=== PATIENT | female | born 1965 | race Caucasian/White ===

== ENCOUNTER 2019-12-31 16:35 | Emergency (ER) | payer MEDICARE, SELFPAY ==
--- NOTE | ~2019-12-31 | CT_ITS ---
EXAMINATION: CT facial bones w con DATE: 12/31/2019 19:50 INDICATION: Right periorbital swelling. TECHNIQUE: Computed tomography (CT) of the facial bones and maxillofacial region was performed with 7 5 mL Omnipaque 350 intravenous contrast. Automated exposure control and iterative reconstruction tech ScanNano were employed. The dose-length product was 503.65 mGy-cm. COMPARISON: Head CT 12/01/2009 FINDINGS: There is bilateral proptosis. There is right periorbital soft tissue swelling, worst at the superior opening of the nasolacrimal duct where there is a 9 mm ring-enhancing fluid collection. The re is mucosal thickening of right inferior turbinate, which occludes the inferior opening of the naso lacrimal duct. There is moderate mucosal thickening in the anterior right ethmoid sinuses. There is m ild mucosal thickening in some of the other paranasal sinuses. There is eg bullosa involving righ t middle turbinate. The extraocular muscles and optic nerves are normal. IMPRESSION: 1. Right nasolacrimal duct obstruction. Reviewed, dictated and finalized at location A. 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
[2019-12-31 17:21] VITALS: BP 168/72; PULSE 81; RESP 18; TEMP 36.9; O2SAT 97
[2019-12-31] MEDS: SODIUM CHLORIDE 0.9% IV 1,000 ML 999 ML IV CONT (18:39)
[2019-12-31] MEDS: FAMOTIDINE 20 MG/2 ML VIAL IV PUSH (18:39)
[2019-12-31] MEDS: MORPHINE SULFATE (*CRX) 4 MG/ML INJ IV PUSH (18:39)
[2019-12-31 18:59] LABS: Basophils Absolute Auto 0.1 K/mm3 (0.0-0.1); Basophils Percent Auto 0.6 % (0.2-1.2); Eosinophils Absolute Auto 0.1 K/mm3 (0-0.3); Hematocrit 40.9 % (37.0-47.0); Hemoglobin 13.4 g/dL (12.0-15.0); Immature Granulocyte Absolute 0.04 K/mm3 (0.00-0.031); Immature Granulocyte Percent A 0.4 % (0-0.5); Lymphocytes Absolute Auto 2.87 K/mm3 (0.9-3.2); Lymphocytes Percent Auto 28.7 % (18.3-44.2); Mean Corpuscular HGB Conc 32.8 g/dl (32-36); Mean Corpuscular Hemoglobin 28.3 pg (26-34); Mean Corpuscular Volume 86.5 fl (80-100); Mean Platelet Volume 9.5 fl (7.4-10.4); Monocytes Absolute Auto 0.7 K/mm3 (0.1-0.6); Monocytes Percent Auto 6.9 % (2.6-8.5); Neutrophils Absolute Auto 6.2 K/mm3 (1.3-6.7); Neutrophils Percent Auto 62.4 % (45.5-73.1); Platelet Count Result 259 k/mm3 (150-375); Red Blood Count 4.73 M/mm3 (4.2-5.4); Red Cell Distribution Width 14.7 % (11.5-14.5)
[2019-12-31 19:03] LABS: Anion Gap 11 mmol/L (8-16); Blood Urea Nitrogen 14 mg/dL (7-17); CRP 4.3 mg/dL (<1.0); Calcium 9.4 mg/dL (8.4-10.2); Carbon Dioxide 29 mmol/L (22-30); Chloride 102 mmol/L (98-107); Estimated CRCL calculation 123 ml/min; Estimated Glomerular Filt Rate > 60; Glucose 153 mg/dL (65-105); Potassium 3.9 mmol/L (3.4-5.0); Sodium 142 mmol/L (137-145)
--- NOTE | 2019-12-31 19:25 | ED.EYEPROB ---
HPI - Eye Problem General Chief complaint: Eye Problems Stated complaint: facial swelling around right eye Time Seen by Provider: 12/31/19 17:57 Source: patient and family Mode of arrival: ambulatory Limitations: no limitations History of Present Illness HPI Narrative: Patient is a 54-year-old female who presents with redness and discomfort in the right periorbital region noting that 2 days ago she began with irritation and discomfort with increasing redness patient denies similar occurrence injury or trauma patient notes that her doctor gave her eyedrops and antibiotics which she has been on for 1 day with no improvement in symptoms with subjective fever with chills patient on arrival appears uncomfortable but in no distress denies similar occurrence in the past 1 Related Data Home Medications Medication Instructions Recorded Confirmed cetirizine 10 mg capsule 10 mg PO DAILY PRN 07/21/19 11/24/19 fluticasone propionate 50 1 spray NASAL BID ml 07/21/19 11/24/19 mcg/actuation nasal spray,suspension ibuprofen 800 mg tablet 800 mg PO TID PRN 07/21/19 11/24/19 Allergies Allergy/AdvReac Type Severity Reaction Status Date / Time citalopram Allergy Unknown Vomiting Verified 12/31/19 17:56 Review of Systems Review of Systems: All systems reviewed & are unremarkable except as noted in HPI and below PMFSH Past Medical History Medical History Cellulitis Exposure to COVID-19 virus Headache Family History Family History (Updated 10/07/18 @ 15:33 by DOCTOR UNKNOWN) Sibling Diabetes mellitus Hypertension Mother Family history of osteoporosis Family history of hypercholesterolemia Father Hypertension Family history of lung cancer Family history of malignant neoplasm of brain, Onset Age: 66 Patient's father is Grandparent Hypertension Carcinoma of colon Family history of coronary artery disease Social History Social History Smoking packs per day: 1 Smoking cigarettes per day: 20.0 Years smoked: 12 Smoking pack-years: 12.00 Smoking status: Former smoker Smoking end date: 12/26/95 Alcohol intake: current Exam Narrative: Exam Narrative: GENERAL: Well-appearing, well-nourished, and in no acute distress. HEAD: Normocephalic, atraumatic. EYES: PERRLA and EOMI. right periorbital erythema and swelling extending into the cheek. No conjunctival injection or discharge noted ENT: Nares clear, no rhinorrhea or epistaxis. Mucous membranes moist. Oropharynx without tonsillar hypertrophy exudate or other lesions. CHEST: Clear to auscultation. No respiratory distress. No wheezes rales or rhonchi HEART: Regular rate and rhythm. No murmur heard. EXTREMITIES: Normal range of motion. No edema. SKIN: Warm, dry, no rash. NEURO: No focal deficits. Alert and oriented x3. PSYCH: Normal mood and affect. Course Course Emergency Course: Patient in the room at this time is been hydrated given IV antibiotics and pain medication will go by private vehicle as requested to [facility] ER where she will be seen by specialty services is aware of the recommendations and discussion with specialty services and agrees with the plan Consultations Consultation #1: Spoke with both of my ENT physicians that are local but not on-call and recommend that the patient should be transferred Date: 12/31/19 Time: 21:24 Consultation #2: Discussed case with Dr. Byrne ophthalmology has [facility] who recommends that the patient be transferred [facility] ER physician has accepted the patient Date: 12/31/19 Time: 21:24 Vital Signs Vital signs: Vital Signs Temperature 98.5 F 12/31/19 17:21 Pulse Rate 81 12/31/19 17:21 Respiratory Rate 18 12/31/19 17:21 Blood Pressure 168/72 H 12/31/19 17:21 Pulse Oximetry 97 12/31/19 17:21 Temperature 99.2 F 12/31/19 20:26 Pulse Rate 91
--- NOTE | 2019-12-31 19:40 | PC.NURSE ---
Patient being taken to CT.
[2019-12-31 20:26] VITALS: BP 149/79; PULSE 91; RESP 18; TEMP 37.3; O2SAT 96
== END 2019-12-31 21:45 | disposition short-term general hospital (02) ==
PROVIDERS: Emergency Medicine Emergency Medical Services; Emergency Provider Emergency Medicine; PCP Family Medicine
DX: L03.213 Periorbital cellulitis (principal); Z87.891 Personal history of nicotine dependence
CPT/HCPCS: 36415; 70487; 80048; 85025; 86140; 96361; 96365; 96366; 96375; 99284; J0131; J0696; J2270; J3370; J7030; Q9967

== ENCOUNTER → 2020-08-29 12:39 | Outpatient (CLI) | payer MEDICARE, SELFPAY ==
--- NOTE | ~2020-08-29 | US_ITS ---
EXAMINATION: US pelvic complete w TV DATE: 08/29/2020 13:06 INDICATION: Postmenopausal bleeding. Cramping. Comparison:No prior studies for comparison. TECHNIQUE: Multiple transabdominal and endovaginal sonographic images of the pelvis performed. FINDINGS: The uterus measures 6.6 x 3 x 3.9 cm. The endometrial complex measures 6 mm. The ovaries are not visualized. No adnexal masses. There is no free fluid in the pelvis. There are no abnormal masses seen on either side. IMPRESSION: 1. Thickened endomtrial complex. The differential diagnosis includes endometrial hyperplasia, polyp a nd carcinoma. Biopsy is recommended. Reviewed, dictated and finalized at location A. IMPRESSION: 1. Thickened endomtrial complex. The differential diagnosis includes endometria l hyperplasia, polyp and carcinoma. Biopsy is recommended.
== END ==
PROVIDERS: PCP Family Medicine; Visit Provider Obstetrics & Gynecology
DX: N95.0 Postmenopausal bleeding (principal)
CPT/HCPCS: 76830; 76856

== ENCOUNTER 2020-11-29 07:29 | Outpatient (CLI) | payer MEDICARE, SELFPAY ==
--- NOTE | ~2020-11-29 | US_ITS ---
EXAMINATION: US carotid duplex BI DATE: 11/29/2020 09:23 INDICATION: Subjective visual disturbance with left visual field defect. TECHNIQUE: Grayscale, color Doppler, and pulsed Doppler images of the cervical carotid arteries were obtained. The degree of vessel stenosis is placed in one of the following categories: normal, <50%, 5 0-69%, >=70% but less than near-occlusion, near-occlusion, or total occlusion. Note that percent sten osis relative to normal distal artery lumen diameter is indirectly measured from velocity measurement s as described by Reji, et al. Radiology 2003; 229:340-346. COMPARISON: None. FINDINGS: RIGHT: The right common carotid artery (CCA) peak systolic velocity (PSV) is 114 cm/s. The right internal ca rotid artery (ICA) PSV is 85 cm/s. The right ICA end-diastolic velocity (EDV) is 23 cm/s. The right I CA/CCA PSV ratio is 0.7. Grayscale and color Doppler images yield an estimate of <50% diameter reduct ion from plaque in the ICA. The external carotid artery (ECA) PSV is 59 cm/s. There is antegrade flow in the right vertebral artery. LEFT: The left CCA PSV is 98 cm/s. The left ICA PSV is 80 cm/s. The left ICA EDV is 27 cm/s. The left ICA/C CA PSV ratio is 0.8. Grayscale and color Doppler images yield an estimate of <50% diameter reduction from plaque in the ICA. The ECA PSV is 150 cm/s. There is antegrade flow in the left vertebral artery . IMPRESSION: 1. <50% stenosis in the right internal carotid artery. 2. <50% stenosis in the left internal carotid artery. Reviewed, dictated and finalized at location B.
--- NOTE | 2020-11-29 07:47 | ECHO_ITS ---
Patient Info Name: Domenica Domínguez Age: 54 years : 1965 Gender: Female Ht: 65 in Wt: 265 lbs BSA: 2.41 m2 HR: 80 bpm BP: 140 / 76 mmHg Exam Date: 11/29/2020 7:54 AM Exam Location: [facility] Patient Status: Outpatient Admit Date: 11/29/2020 Staff Ordering Physician: Karri Fowler MD Cardiac Exercise Physiologist: Tammy Lawson RDCS Attending Provider: Karri Fowler MD Referring Physician: Bonifacio Martin MD; Exam Type: CA echo doppler color flow Study Info Indications H53.9 - Unspecified visual disturbance Complete two-dimensional, color flow and Doppler transthoracic echocardiogram is performed. Summary 1. Complete two-dimensional, color flow and Doppler transthoracic echocardiogram is performed. 2. Left ventricular chamber dimension is normal. 3. Left ventricular systolic function is normal, estimated at 60-65%. 4. The left ventricular diastolic function is abnormal. 5. E/e' 12 is mildly elevated. 6. Left atrial chamber dimension is mildly enlarged. 7. The mitral valve has mildly calcified annulus. 8. There is trace mitral valve regurgitation. 9. There is trace tricuspid valve regurgitation. 10. No pulmonary hypertension, estimated pulmonary arterial systolic pressure is 31 mmHg. Left Ventricle E/e' 12 is mildly elevated. Left ventricular chamber dimension is normal. Left ventricular systolic function is normal, estimated at 60-65%. The left ventricular diastolic function is abnormal. Right Ventricle Right ventricular systolic function is normal and with normal TAPSE 2.4 cm. Right ventricular chamber dimension is normal. Left Atria Left atrial chamber dimension is mildly enlarged. Right Atria Right atrial chamber dimension is normal. Aortic Valve The aortic valve is trileaflet. There is no aortic valve stenosis. There is no aortic valve regurgitation. Pulmonic Valve There is no pulmonic regurgitation. Mitral Valve The mitral valve has mildly calcified annulus. There is no mitral valve stenosis. There is trace mitral valve regurgitation. Tricuspid Valve There is trace tricuspid valve regurgitation. No pulmonary hypertension, estimated pulmonary arterial systolic pressure is 31 mmHg. Pericardium/Pleural There is no pericardial effusion. Inferior Vena Cava Normal inferior vena cava with >50% collapse upon inspiration consistent with normal right atrial pressure, 5 mmHg. Aorta The aortic root size at the sinus of Valsalva is normal. Left Ventricular Outflow Tract Name Value Normal LVOT 2D LVOT Diameter 2.0 cm LVOT Doppler LVOT Peak Gradient 6 mmHg LVOT Mean Gradient 3 mmHg LVOT VTI 28 cm LVOT VTI/AV VTI Ratio 0.8 LVOT Stroke Volume 86 ml LVOT CO 5.4 l/min LVOT CI 2.3 l/min/m2 Pulmonic Valve Name Value Normal
--- NOTE | 2020-11-29 08:41 | ECG_ITS ---
Measurements Intervals [place] Rate: 75 P: 61 GA: 220 QRS: 33 QRSD: 91 T: 48 QT: 396 QTc: 444 Interpretive Statements SINUS RHYTHM WITH FIRST DEGREE AV BLOCK ABNORMAL ECG Electronically Signed On 11-29-2020 8:57:29 CDT by Justin Pradhan D.O.
== END 2020-11-29 07:30 | disposition home or self-care (01) ==
PROVIDERS: PCP Family Medicine; Referring Provider Obstetrics & Gynecology; Visit Provider Family Medicine
DX: Z01.818 Encounter for other preprocedural examination (principal); G45.9 Transient cerebral ischemic attack, unspecified; I44.0 Atrioventricular block, first degree
CPT/HCPCS: 93005; 93306; 93880

== ENCOUNTER 2020-12-06 00:36 | Day surgery (SDC) | payer MEDICARE, SELFPAY ==
[2020-11-28 12:49] VITALS: BMI 44.1
[2020-12-06 06:30] VITALS: BP 141/63; PULSE 92; RESP 16; TEMP 37.1; O2SAT 98
[2020-12-06] MEDS: ACETAMINOPHEN 500 MG TABLET 1000 MG PO (06:41)
[2020-12-06] MEDS: LACTATED RINGERS 1,000 ML 30 ML IV CONT (06:55)
[2020-12-06 07:07] LABS: Glucose Point of Care 129 mg/dl (65-105)
--- NOTE | 2020-12-06 07:12 | PM.IMHP ---
H&P: HPI History of Present Illness Date/Time: 12/06/20 07:12 Patient with postmenopausal bleeding with endometrial biopsy that showed possible polyp. Recommended for D and C hysteroscopy. Chief Complaint: postmenopausal bleeding Review of Systems Review of Systems: All systems reviewed & are unremarkable except as noted in HPI and below Cardiovascular: Cardiovascular: Reports no additional cardiovascular complaints, Denies chest pain and Denies dyspnea Respiratory: Respiratory: Reports no additional respiratory complaints and Denies dyspnea Gastrointestinal: Gastrointestinal: Reports abdominal pain, Denies change in bowel habits, Denies diarrhea, Denies nausea and Denies vomiting Genitourinary: Genitourinary: Reports pelvic pain Musculoskeletal: Musculoskeletal: Reports back pain Integumentary/Breasts: Skin/Breast: Reports system reviewed and no additional complaints, except as docu Neurologic: Reports system reviewed and no additional complaints, except as documented [facility] Past Medical History Medical History (Updated 12/06/20 @ 07:14 by Bonifacio Martin MD) Anxiety Arthritis Cellulitis Exposure to COVID-19 virus Headache TAMIKO (obstructive sleep apnea) Polyp of colon (10/27/18) benign polyp transverse colon 10/27/2018 Dr. 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 Echocardiogram unremarkable 11/29/2020 with trace mitral valve regurgitation and trace tricuspid regurgitation. TIA (transient ischemic attack) with temporary visual changes Surgical History Surgical History H/O Spinal surgery Posterior spinal fusion Anterior spinal fusion Posterior spinal fusion revised History of section S/P endometrial ablation Tubal ligation status [place] teeth removed Family History Family History Sibling Diabetes mellitus Hypertension Mother Family history of osteoporosis Family history of hypercholesterolemia Father Hypertension Family history of lung cancer Family history of malignant neoplasm of brain, Onset Age: 66 Patient's father is Grandparent Hypertension Carcinoma of colon Family history of coronary artery disease Social History Social History Smoking packs per day: 1 Smoking cigarettes per day: 20.0 Years smoked: 10 Smoking pack-years: 10.00 Smoking status: Former smoker Tobacco type: cigarettes Smoking end date: 12/26/95 Alcohol intake: current Alcohol use details: RARE Substance use: never Substance use type: does not use Living arrangements: with family Spiritual care concerns: No Meds Home Medications and Allergies Home Medications Medication Instructions Recorded Confirmed Type cetirizine 10 mg capsule 10 mg PO DAILY PRN 07/21/19 11/28/20 History fluticasone propionate 50 1 spray NASAL BID ml 07/21/19 11/28/20 History mcg/actuation nasal spray,suspension acetaminophen 500 mg tablet 500 mg PO Q6H PRN 08/16/20 11/28/20 History atorvastatin 10 mg tablet 10 mg PO DAILY #90 tablet 10/17/20 11/28/20 Rx lisinopril 20 mg tablet 20 mg PO DAILY #90 tablet 10/17/20 11/28/20 Rx meloxicam 15 mg tablet 15 mg PO DAILY PRN #90 tablet 10/17/20 11/28/20 Rx metformin 500 mg tablet 500 mg PO DAILY #90 tablet 10/17/20 11/28/20 Rx Allergies Allergy/AdvReac Type Severity Reaction Status Date / Time citalopram Allergy Unknown Vomiting Verified 11/28/20 12:48 Exam Const: Orientation/consciousness: oriented to person and oriented to place HENMT: Head: normal to inspection Eyes: General: appearance normal, both eyes and all related structures Resp: Effort & Insp
--- NOTE | 2020-12-06 07:15 | WPDHPUPDATE1 ---
History and Physical Update Update Date/Time: 12/06/20 07:15 History and Physical has been reviewed, including an updated exam of the patient. There are NO changes in the patient's condition. Risks, benefits, and alternatives have been discussed and questions answered. Patient agrees to proceed with procedure.
--- NOTE | 2020-12-06 07:16 | WPDANESEPPF ---
Anes - Initial Pre Proc Eval Procedure: Operation Date: 12/06/20 07:30 Proposed Procedures p Dilation and Curettage with Possible Hysteroscopy, with Possible Myosure - Bonifacio Martin MD Date/Time: 12/06/20 07:16 Surgeon: Bonifacio Martin MD Pre Op Diagnosis: abnormal uterine bleeding Patient Data Age: 54 Gender: F Height: 1.65 m Weight: 120.2 kg Allergies Allergy/AdvReac Type Severity Reaction Status Date / Time citalopram Allergy Unknown Vomiting Verified 11/28/20 12:48 Home Medications Medication Instructions Recorded Confirmed Type cetirizine 10 mg capsule 10 mg PO DAILY PRN 07/21/19 11/28/20 History fluticasone propionate 50 1 spray NASAL BID ml 07/21/19 11/28/20 History mcg/actuation nasal spray,suspension acetaminophen 500 mg tablet 500 mg PO Q6H PRN 08/16/20 11/28/20 History atorvastatin 10 mg tablet 10 mg PO DAILY #90 tablet 10/17/20 11/28/20 Rx lisinopril 20 mg tablet 20 mg PO DAILY #90 tablet 10/17/20 11/28/20 Rx meloxicam 15 mg tablet 15 mg PO DAILY PRN #90 tablet 10/17/20 11/28/20 Rx metformin 500 mg tablet 500 mg PO DAILY #90 tablet 10/17/20 11/28/20 Rx Laboratory Tests 12/06/20 07:05 POC Capillary Glucose 129 mg/dl H mg/dl (65-105) Patient hx anesthesia problems: none Family hx anesthesia problems: none Results Review: All pre-operative results and documents have been reviewed as part of the pre-operative evaluation. [facility] Past Medical History Medical History (Updated 12/06/20 @ 07:14 by Bonifacio Martin MD) Anxiety Arthritis Cellulitis Exposure to COVID-19 virus Headache TAMIKO (obstructive sleep apnea) Polyp of colon (10/27/18) benign polyp transverse colon 10/27/2018 Dr. 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 Echocardiogram unremarkable 11/29/2020 with trace mitral valve regurgitation and trace tricuspid regurgitation. TIA (transient ischemic attack) with temporary visual changes Surgical History Surgical History H/O Spinal surgery Posterior spinal fusion Anterior spinal fusion Posterior spinal fusion revised History of section S/P endometrial ablation Tubal ligation status [place] teeth removed Family History Family History Sibling Diabetes mellitus Hypertension Mother Family history of osteoporosis Family history of hypercholesterolemia Father Hypertension Family history of lung cancer Family history of malignant neoplasm of brain, Onset Age: 66 Patient's father is Grandparent Hypertension Carcinoma of colon Family history of coronary artery disease Social History Social History Smoking packs per day: 1 Smoking cigarettes per day: 20.0 Years smoked: 10 Smoking pack-years: 10.00 Smoking status: Former smoker Tobacco type: cigarettes Smoking end date: 12/26/95 Alcohol intake: current Alcohol use details: RARE Substance use: never Substance use type: does not use Living arrangements: with family Spiritual care concerns: No Anes - Eval Final PreProcedure Day of Procedure 12/06/20 07:16 Patient weight: morbidly obese Heart: regular rate and rhythm Lungs: clear to auscultation Airway: Mallampati scale class II Neurological: alert and oriented Last oral intake: >/= 8 hours ASA classification: III Emergent: no Anesthetic plan: proceed Anesthesia type and monitoring: general GIVS (may use LMA if needed) and standard monitoring Results Review: All pre-operative results and documents have been reviewed as part of the pre-operative evaluation. Informed Consent: The patient's anesthetic plan and its atte
[2020-12-06] MEDS: ceFAZolin 3 GM/D5W 100 ML 100 ML IVPB (07:29)
[2020-12-06] MEDS: LIDOCAINE HCL 1% PF 30 ML VIAL 10 ML INFILTRATE (07:46)
[2020-12-06 07:59] VITALS: BP 109/45; PULSE 83; RESP 12; O2SAT 95
[2020-12-06 08:06] LABS: Glucose Point of Care 141 mg/dl (65-105)
--- NOTE | 2020-12-06 08:11 | W.PM.PROC2 ---
Procedure Note - Detailed Date of Procedure 12/06/20 Pre-op Diagnosis abnormal uterine bleeding Post-op Diagnosis same Procedure Performed Dilation and curettage hysteroscopy diagnostic. Surgeon Bonifacio Martin MD Anesthesia MAC and local Indications Patient with post menopausal bleeding. Endometrial biopsy showed possible endometrial polyp. Findings Uterus sound to 7.5 cm. The uterine cavity was atrophic. Minimal tissue obtained on curettage. total insufflation 200 cc recovered 140 cc of normal saline. Description of Procedure After form consent was obtained patient was taken to the operating room and adequate IV sedation was administered. She was placed in high lithotomy position and prepped and draped in sterile fashion. Attention was turned to the vagina. Speculum inserted. Single-tooth tenaculum placed on anterior lip of the cervix. 1% lidocaine was injected at the cervical vaginal interface at 2, 5, 8 and 10 oclock position. The small dilator was inserted. The uterine sound was inserted and sounded to 7.5 cm. The cervix was dilated to an 8 Barrientos dilator. The hysteroscope was inserted. The cavity appeared atrophic. No lesions seen. A curettage was then performed and there was minimal tissue obtained. The single-tooth tenaculum was removed. Hemostasis was noted. The speculum was removed. The patient tolerated procedure well. Estimated Blood Loss 5 Drains No Packing No Pathology yes ( Scant endometrial curettings) Complications No immediate complications Condition stable Disposition PACU
[2020-12-06] MEDS: oxyCODONE HCL (*CRX) 5 MG TAB IR PO (08:23)
[2020-12-06 08:25] VITALS: BP 104/48; PULSE 76; RESP 20
[2020-12-06 08:55] VITALS: BP 119/64; PULSE 74; RESP 20
== END 2020-12-06 09:00 | disposition home or self-care (01) ==
PROVIDERS: PCP Family Medicine; Visit Provider Obstetrics & Gynecology
PROC: 0U5B8ZZ Destruction of Endometrium, Via Natural or Artificial Opening Endoscopic (ICD-10-PCS; CPT 58563; principal; 2020-12-06 07:30)
DX: N95.0 Postmenopausal bleeding (principal); N85.8 Other specified noninflammatory disorders of uterus; G47.33 Obstructive sleep apnea (adult) (pediatric); F41.9 Anxiety disorder, unspecified; Z86.73 Personal history of transient ischemic attack (TIA), and cerebral infarction without residual deficits; Z98.1 Arthrodesis status; Z87.891 Personal history of nicotine dependence; Z79.84 Long term (current) use of oral hypoglycemic drugs; E66.01 Morbid (severe) obesity due to excess calories; Z68.42 Body mass index [BMI] 45.0-49.9, adult
CPT/HCPCS: 58558; 82948; 88305; 93005; 93306; 93880; A9270; J0690; J2250; J7030; J7120

== ENCOUNTER → 2021-02-05 07:05 | Outpatient (CLI) | payer MEDICARE, SELFPAY ==
--- NOTE | ~2021-02-05 | MM_ITS ---
EXAMINATION: MM screening carlos BI w gely HISTORY: Screening mammogram TECHNIQUE: Craniocaudal and mediolateral oblique 3-D tomosynthesis images were obtained and synthetic 2-D images were generated. CAD analysis was submitted and interpreted. COMPARISON: 02/08/2016 BREAST PARENCHYMAL COMPOSITION: There are scattered areas of fibroglandular density. FINDINGS: A focal asymmetry outer left breast is not significantly changed. There is no evidence of s uspicious mass, calcification, or architectural distortion to suggest malignancy in either breast. Th ere has been no suspicious interval change. IMPRESSION: 1. No mammographic evidence of malignancy. 2. Recommend routine screening mammography in one year. BI-RADS Category 1: Negative Reviewed, dictated and finalized at location A. 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
== END ==
PROVIDERS: PCP Family Medicine; Visit Provider Obstetrics & Gynecology
DX: Z12.31 Encounter for screening mammogram for malignant neoplasm of breast (principal)
CPT/HCPCS: 77063; 77067

== ENCOUNTER → 2021-02-07 07:44 | Outpatient (CLI) | payer MEDICARE, SELFPAY ==
[2021-02-07 18:29] LABS: SARS-CoV-2 RNA PCR Negative
== END ==
PROVIDERS: PCP Family Medicine; Visit Provider Family Medicine
DX: J02.9 Acute pharyngitis, unspecified (principal); Z20.822 Contact with and (suspected) exposure to COVID-19
CPT/HCPCS: C9803; U0003; U0005

== ENCOUNTER → 2021-02-28 07:25 | Outpatient (CLI) | payer MEDICARE, SELFPAY ==
[2021-03-01 14:36] LABS: SARS-CoV-2 RNA PCR Negative
== END ==
PROVIDERS: PCP Family Medicine; Visit Provider Family Medicine
DX: Z20.822 Contact with and (suspected) exposure to COVID-19 (principal)
CPT/HCPCS: C9803; U0003; U0005

== ENCOUNTER 2021-04-06 07:55 | Outpatient (CLI) | payer MEDICARE, SELFPAY ==
--- NOTE | 2021-04-10 14:22 | WPDSLEEPSTUD ---
Sleep Study Date of Study: 04/06/21 <Charlotte Rockwell, DO - Last Filed: 04/10/21 14:51> Ordering Provider: Karri Fowler MD <Charlotte Rockwell, DO - Last Filed: 04/10/21 14:51> Interpreting Physician: Charlotte Rockwell DO <Charlotte Rockwell, DO - Last Filed: 04/10/21 14:51> Sleep Study Type: Split Polysomnogram <Charlotte Rockwell, DO - Last Filed: 04/10/21 14:51> Height: 1.64 m <Charlotte Rockwell DO - Last Filed: 04/10/21 14:51> Weight: 125.191 kg <Charlotte Rockwell DO - Last Filed: 04/10/21 14:51> Body Mass Index: 46.6 <Charlotte Rockwell DO - Last Filed: 04/10/21 14:51> Neck Circumference (inches): 18.5 <Charlotte Rockwell DO - Last Filed: 04/10/21 14:51> [place]: 12 <Charlotte Rockwell DO - Last Filed: 04/10/21 14:51> Reason for Sleep Study The patient's current CPAP machine is malfunctioning. She needs a new sleep study to requalify for PAP therapy. <Charlotte Rockwell DO - Last Filed: 04/10/21 14:51> Sleep History The patient is a 55-year-old female with anxiety, type 2 diabetes, hypertension, hyperlipidemia, lumbago with left-sided sciatica, allergic rhinitis, history of TIA, history of tobacco abuse and previously diagnosed TAMIKO that had a sleep study ordered by her PCP. the patient states that she frequently awakens from sleep short of breath. She rarely awakens at night with heartburn, belching or cough she constantly snores loud enough that others complain. She rarely has trouble sleeping when she has a cold. She frequently wakes up gasping for air throughout the night. She constantly has breathing problems at night observed by herself or others. She frequently sweats excessively at night. She occasionally notices heart palpitations or irregular heartbeats during the night. She frequently falls asleep during the day but never while driving. She occasionally has trouble at school or work due to sleepiness. She rarely experiences vivid dreamlike scenes upon awakening or falling asleep. She denies sleep paralysis and cataplexy. She denies having nightmares. She occasionally has thoughts racing through her mind. She rarely feels sad or depressed. She occasionally has anxiety. She denies noticing parts of her body jerk. She occasionally experiences crawling and aching feelings in her legs as well as leg pain night. She denies grinding her teeth during sleep awakening with morning jaw pain. He is frequently bothered by pain during the day and occasionally awakened by pain during the night. She constantly wakes up feeling stiff in the morning with sore or achy muscles. She constantly wakes up with pain in the neck, spine and other joints. She goes to bed between 9 and 10:00 p.m. on weekdays and between 10 and 11:00 p.m. on the weekends. She is able to fall asleep within a couple minutes. She wakes up 3-4 times throughout the night since her CPAP has been malfunctioning. It takes her 30-45 minutes to fall back asleep. She wakes up between 6 and 7:00 a.m. on the weekdays and 8:00 a.m. the weekends. She typically gets 5-6 hours of sleep since her CPAP started malfunctioning. She does not lay in bed after waking up in the morning. She currently lives with her , 14-year-old son and 4-year-old granddaughter. She denies consuming any caffeinated beverages within 2 hours of bedtime. She denies engaging in physical exercise before bedtime. She will report for falling asleep. She denies taking naps in the afternoon or the evening. She will drink 3-4 caffeinated beverages in the morning. She will drink alcohol occasionally. She quit smoking cigarettes in December 1995. She denies recreational drug use. <Charlotte Rockwell DO - Last Filed: 04/10/21 14:51> [facility] Past Medical History Medical History: Medical History (Updated 04/10/21 @ 14:45 by Charlotte Rockwell DO) Anxiety Arthritis Cellulitis Exposure to CO
[2021-04-10 14:49] VITALS: BMI 46.6
== END 2021-04-07 06:49 | disposition home or self-care (01) ==
LOC: ANHCSM 07:56
PROVIDERS: PCP Family Medicine; Visit Provider Family Medicine
DX: G47.33 Obstructive sleep apnea (adult) (pediatric) (principal)
CPT/HCPCS: 95811

== ENCOUNTER 2021-05-20 09:29 | Outpatient (CLI) | payer MEDICARE, SELFPAY ==
--- NOTE | ~2021-05-20 | MR_ITS ---
EXAMINATION: MR brain/brain stem wo/w con EXAM DATE: 05/20/2021 10:58 INDICATION: Left optic nerve atrophy. TECHNIQUE: Magnetic resonance imaging (MRI) of the brain/brain stem obtained without contrast. Sagit eliza T1, axial diffusion, gradient echo (T2*), T1, T2, FLAIR sequences obtained. Patient was then inj ected with 20 cc intravenous Multihance contrast. Axial and coronal postcontrast T1 weighted sequence s obtained. Correlation is made to orbital MRI examination same date. FINDINGS: Pituitary gland within normal size limits, suprasellar region unremarkable. There are no ar eas of restricted diffusion to suggest acute infarction. There is no acute hemorrhage seen on the T2 *, a hemosiderin sensitive sequence. No intraparenchymal brain mass. The ventricles are normal in si ze. There are no extra-axial collections. Flow voids are seen in the cerebral arteries on the T2-we ighted sequences consistent with their expected patency. The orbits are unremarkable. Soft tissue i s unremarkable. There are no areas of abnormal enhancement on the post contrast images. IMPRESSION: Unremarkable brain MRI examination. Reviewed, dictated and finalized at location G.
--- NOTE | ~2021-05-20 | MR_ITS ---
EXAMINATION: MR orbits face neck wo/w con EXAM DATE: 05/20/2021 10:58 INDICATION: Optic Atrophy Lt Eye . TECHNIQUE: Magnetic resonance imaging (MRI) images of the MR orbits face neck wo/w con were obtained. The following thin collimation orbital sequences were acquired: Axial and coronal T2 fat saturation , axial and coronal T1, axial and coronal postcontrast T1 fat saturation following intravenous inject ion of the same 20 mL MultiHance as per brain MRI obtained same date. There is no prior study for co mparison. FINDINGS: The optic nerves are symmetric in size and appearance. Unremarkable globes and retrobulbar fat. The extraocular muscles are symmetric. Optic chiasm and tract unremarkable. There are no areas o f abnormal enhancement on the post contrast images. Right-sided ge bullosa. Superior ophthalmic v eins within normal size limits. IMPRESSION: Unremarkable orbits, globes, optic nerves and tracts. Reviewed, dictated and finalized at location G.
[2021-05-20 10:26] LABS: Estimated Glomerular Filt Rate > 60
== END 2021-05-20 09:30 | disposition home or self-care (01) ==
LOC: ANHIMG 09:34
PROVIDERS: PCP Family Medicine
DX: H47.292 Other optic atrophy, left eye (principal)
CPT/HCPCS: 70543; 70553; A9577

== ENCOUNTER 2021-08-31 13:20 | Outpatient (RCR) | payer MEDICARE, SELFPAY ==
[2021-08-31] MEDS: ACETAMINOPHEN 325 MG TABLET 650 MG PO (13:41)
[2021-08-31] MEDS: diphenhydrAMINE HCl CAP 25 MG CAPSULE PO (13:42)
[2021-08-31] MEDS: FAMOTIDINE 20 MG TABLET PO (13:42)
[2021-08-31 13:46] VITALS: BP 136/64; PULSE 105; TEMP 37.3; O2SAT 97
[2021-08-31] MEDS: BEBTELOVIMAB 175 MG/2 ML VIAL IV PUSH (14:00)
[2021-08-31 14:39] VITALS: BP 134/54; PULSE 100; O2SAT 96
== END 2021-08-31 16:00 ==
LOC: AMCINF 13:20
PROVIDERS: PCP Family Medicine; Referring Provider Family Medicine; Visit Provider Internal Medicine Hematology & Oncology
DX: U07.1 COVID-19 (principal); I10 Essential (primary) hypertension; E11.9 Type 2 diabetes mellitus without complications; Z86.73 Personal history of transient ischemic attack (TIA), and cerebral infarction without residual deficits
CPT/HCPCS: A9270; M0222; Q0222

== ENCOUNTER 2022-04-15 19:02 | Emergency (ER) | payer MEDICARE, SELFPAY ==
--- NOTE | ~2022-04-15 | XR_ITS ---
EXAMINATION: XR tibia fibula LT 2V DATE: 04/15/2022 19:37 INDICATION: Left lower leg pain. TECHNIQUE: 2 views of left tibia and fibula were obtained. COMPARISON: None. FINDINGS: Bone alignment is normal. No fracture. There is mild left knee osteoarthritis. IMPRESSION: 1. Mild left knee osteoarthritis. Reviewed, dictated and finalized at location A. FIC SURVEY TECHNICIAN
[2022-04-15 19:17] VITALS: BP 146/87; PULSE 101; RESP 20; TEMP 36.8; O2SAT 97
--- NOTE | 2022-04-15 19:29 | ED.EXTPRO ---
HPI - Extremity Problem General Chief complaint: Extremity Problem,Nontraumatic Stated complaint: lower lt leg pain Time Seen by Provider: 04/15/22 19:25 Source: patient Mode of arrival: ambulatory Limitations: no limitations History of Present Illness HPI Narrative: 56 y/o female with hx DM and HTN, presented for c/o left lower leg pain worsening since yesterday. Pain is severe with walking rates it 10/10. Denies injury or recent overuse. States this is how it felt when she broke the leg at age 21. Endorses chronic numbness/tingling to toes and states she does not feel this has increased. Also endorses chronic intermittent redness to the left sosa, for which she takes the prescribed triamcinolone cream. States the redness is flared at this time and appears as it usually does. Currently denies cp, palpitations, sob, wheezing, n/v/d/f/c. Taking meloxicam as scheduled. Related Data Home Medications Medication Instructions Recorded Confirmed cetirizine 10 mg capsule (Zyrtec) 10 mg PO DAILY PRN allergy symptoms 07/21/19 04/15/22 fluticasone propionate 50 1 spray intranasal BID 07/21/19 04/15/22 mcg/actuation nasal spray,suspension (Flonase Allergy Relief) Allergies Allergy/AdvReac Type Severity Reaction Status Date / Time citalopram AdvReac Intermediate Vomiting Verified 04/15/22 19:07 Review of Systems Review of Systems: CONSTITUTIONAL: Denies body aches, fever, chills CARDIOVASCULAR: Denies chest pain, palpitations, or edema. RESPIRATORY: Denies cough or dyspnea. GASTROINTESTINAL: Denies abdominal pain, nausea, vomiting, or diarrhea. SKIN: Endorses red rash to left lower leg MUSCULOSKELETAL: Endorses left lower leg pain NEUROLOGIC: Denies headache, numbness, tingling, or weakness. All systems reviewed & are unremarkable except as noted in HPI and below PMFSH Past Medical History Medical History Abnormal uterine bleeding Acute bronchitis Anxiety Anxiety and depression Arthritis Body mass index (BMI) 45.0-49.9, adult Cellulitis Close exposure to COVID-19 virus (~08/29/21) family with COVID positive and patient with symptoms, but negative test COVID-19 (08/29/21) test positive 08/30/2021 treated with monoclonal antibody infusion. Fully vaccinated. Eczema (~05/14/21) left lower leg Exposure to COVID-19 virus Fever blister (~09/2021) Headache Morbid obesity with BMI of 45.0-49.9, adult TAMIKO (obstructive sleep apnea) Pharyngitis Polyp of colon (10/27/18) benign polyp transverse colon 10/27/2018 Dr. 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 Echocardiogram unremarkable 11/29/2020 with trace mitral valve regurgitation and trace tricuspid regurgitation. Screening for diabetic retinopathy no diabetic retinopathy on 06/14/2021. TIA (transient ischemic attack) with temporary visual changes Vaginal delivery x2 Surgical History Surgical History H/O Spinal surgery Posterior spinal fusion Anterior spinal fusion Posterior spinal fusion revised History of section x1 History of dilation and curettage 12/06/20, with [facility] [place] S/P endometrial ablation Tubal ligation status [place] teeth removed Family History Family History Sibling Diabetes mellitus Hypertension Mother Family history of osteoporosis Family history of hypercholesterolemia Father Hypertension Family history of lung cancer Family history of malignant neoplasm of brain, Onset Age: 66 Patient's father is Grandparent Hypertension Carcinoma of colon Family history of coronary artery disease Social History Social History (Reviewed 04/15/22 @ 1
== END 2022-04-15 20:10 | disposition short-term general hospital (02) ==
PROVIDERS: Emergency Provider Nurse Practitioner Family; PCP Family Medicine
DX: M79.662 Pain in left lower leg (principal); I10 Essential (primary) hypertension; E11.9 Type 2 diabetes mellitus without complications; E78.2 Mixed hyperlipidemia; Z86.73 Personal history of transient ischemic attack (TIA), and cerebral infarction without residual deficits; Z79.1 Long term (current) use of non-steroidal anti-inflammatories (NSAID); Z87.891 Personal history of nicotine dependence
CPT/HCPCS: 73590; 99213; G0463

== ENCOUNTER 2022-04-15 20:11 | Emergency (ER) | payer MEDICARE, SELFPAY ==
--- NOTE | ~2022-04-15 | US_ITS ---
EXAMINATION: US venous doppler [facility] DATE: 04/15/2022 21:19 INDICATION: Left calf pain. TECHNIQUE: Grayscale ultrasound images without and with compression and Doppler ultrasound images of the left lower extremity veins were obtained. COMPARISON: None. FINDINGS: The visualized portions of left common femoral vein, profunda (deep) femoral vein, femoral vein, popl iteal vein, peroneal veins, posterior tibial veins, and greater saphenous vein outflow are patent. IMPRESSION: 1. No deep venous thrombosis. Reviewed, dictated and finalized at location A. RITY POLICE
[2022-04-15 20:14] VITALS: BP 186/87; PULSE 95; RESP 18; TEMP 37.5; O2SAT 97
--- NOTE | 2022-04-15 23:48 | PC.NURSE ---
Ice pack applied to left ankle and ankle elevated.
--- NOTE | 2022-04-16 01:00 | ED.LOWEXIN ---
HPI - Extremity Injury (Lower) General Chief Complaint: Extremity Injury, Lower Stated Complaint: L leg pain, r/o DVT Time Seen by Provider: 04/16/22 00:34 History of Present Illness HPI Narrative: 56-year-old female with a history of obesity, TIA, hyperlipidemia, TAMIKO reports for left lower extremity pain x2 days. Patient states she went out to eat, was at the restaurant without pain, and by the time she was leaving she was in excruciating pain originating in her ankle and radiating up into her calf. Patient denies any trauma, or injury. She went to the urgent care this morning and got an x-ray which revealed no osseous abnormality. The urgent care encouraged her to come to the ED to get evaluated for a blood clot. Doppler ordered here and negative for DVT. She is reporting worsening pain with dorsiflexion, weightbearing. She has not taken any medications for her pain. She denies fever, body aches, chills, knee pain, injury, trauma. Related Data Home Medications Medication Instructions Recorded Confirmed cetirizine 10 mg capsule (Zyrtec) 10 mg PO DAILY PRN allergy symptoms 07/21/19 04/15/22 fluticasone propionate 50 1 spray intranasal BID 07/21/19 04/15/22 mcg/actuation nasal spray,suspension (Flonase Allergy Relief) Allergies Allergy/AdvReac Type Severity Reaction Status Date / Time citalopram AdvReac Intermediate Vomiting Verified 04/15/22 19:07 Review of Systems Review of Systems: CONSTITUTIONAL: Denies fever, chills EYES: Denies visual changes, redness, or discharge. ENT: Denies rhinorrhea, congestion, sore throat, or otalgia. CARDIOVASCULAR: Denies chest pain, palpitations, or edema. RESPIRATORY: Denies cough or dyspnea. GASTROINTESTINAL: Denies abdominal pain, nausea, vomiting, or diarrhea. GENITOURINARY: Denies dysuria or hematuria. SKIN: Denies rash or itching. MUSCULOSKELETAL: Denies back pain NEUROLOGIC: Denies headache, numbness, dizziness, or weakness. PSYCHIATRIC: Denies anxiety or depression. [facility] Past Medical History Medical History Abnormal uterine bleeding Acute bronchitis Anxiety Anxiety and depression Arthritis Body mass index (BMI) 45.0-49.9, adult Cellulitis Close exposure to COVID-19 virus (~08/29/21) family with COVID positive and patient with symptoms, but negative test COVID-19 (08/29/21) test positive 08/30/2021 treated with monoclonal antibody infusion. Fully vaccinated. Eczema (~05/14/21) left lower leg Exposure to COVID-19 virus Fever blister (~09/2021) Headache Morbid obesity with BMI of 45.0-49.9, adult TAMIKO (obstructive sleep apnea) Pharyngitis Polyp of colon (10/27/18) benign polyp transverse colon 10/27/2018 Dr. 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 Echocardiogram unremarkable 11/29/2020 with trace mitral valve regurgitation and trace tricuspid regurgitation. Screening for diabetic retinopathy no diabetic retinopathy on 06/14/2021. TIA (transient ischemic attack) with temporary visual changes Vaginal delivery x2 Surgical History Surgical History H/O Spinal surgery Posterior spinal fusion Anterior spinal fusion Posterior spinal fusion revised History of section x1 History of dilation and curettage 12/06/20, with [facility] [place] S/P endometrial ablation Tubal ligation status [place] teeth removed Family History Family History Sibling Diabetes mellitus Hypertension Mother Family history of osteoporosis Family history of hypercholesterolemia Father Hypertension Family history of lung cancer Family history of malignant neoplasm of brain, Onset Age: 66 Patient's father is
== END 2022-04-16 01:16 | disposition home or self-care (01) ==
PROVIDERS: Emergency Provider Physician Assistant; PCP Family Medicine
DX: L03.116 Cellulitis of left lower limb (principal); E11.9 Type 2 diabetes mellitus without complications; G47.33 Obstructive sleep apnea (adult) (pediatric); M19.90 Unspecified osteoarthritis, unspecified site; E66.01 Morbid (severe) obesity due to excess calories; Z68.42 Body mass index [BMI] 45.0-49.9, adult; Z86.73 Personal history of transient ischemic attack (TIA), and cerebral infarction without residual deficits; Z86.010 Personal history of colon polyps; Z98.1 Arthrodesis status; Z87.891 Personal history of nicotine dependence; Z79.84 Long term (current) use of oral hypoglycemic drugs
CPT/HCPCS: 73590; 93971; 99284

== ENCOUNTER → 2022-04-16 15:24 | Outpatient (CLI) | payer MEDICARE, SELFPAY ==
--- NOTE | ~2022-04-16 | XR_ITS ---
EXAMINATION: XR ankle LT min 3V, XR foot LT min 3V DATE: 04/16/2022 15:57 INDICATION: Left foot and ankle pain TECHNIQUE: 1. Anteroposterior, oblique and lateral view of the left ankle were obtained. 2. Dorsoplantar, oblique and lateral views of the left foot were obtained. COMPARISON: None. FINDINGS: Alignment of the left foot and ankle is normal. No fracture. Small subarticular lucencies along the m edial side of the talar dome most likely small degenerative subchondral cysts related to mild osteoar thritis versus less likely an osteochondral lesion related to prior trauma. Moderate osteoarthritis a t the second and third tarsal metatarsal joints, mild to moderate osteoarthritis of the first metatar sophalangeal joint and mild osteoarthritis at the remaining tarsal metatarsal, calcaneocuboid and sev eral interphalangeal joints. Moderate-sized plantar calcaneal spur. No ankle joint effusion. The soft tissues are unremarkable. IMPRESSION: 1. No left ankle joint effusion or acute osseous abnormality. 2. Degenerative skeletal changes at the left foot and ankle including mild to moderate polyarticular osteoarthritis most prominent in the midfoot and moderate-sized plantar calcaneal spur. Reviewed, dictated and finalized at location A. CTOR OF ENROLLMENT IMPRESSION: 1. No left ankle joint effusion or acute osseous abnormality. 2. Degenerative skeletal changes at the left foot and ankle including mild to m oderate polyarticular osteoarthritis most prominent in the midfoot and moderate -sized plantar calcaneal spur.
== END ==
PROVIDERS: PCP Family Medicine; Visit Provider Family Medicine
DX: M19.072 Primary osteoarthritis, left ankle and foot (principal); M77.32 Calcaneal spur, left foot; M25.572 Pain in left ankle and joints of left foot; M79.672 Pain in left foot
CPT/HCPCS: 73610; 73630

== ENCOUNTER → 2022-04-23 10:24 | Outpatient (CLI) | payer MEDICARE, SELFPAY ==
--- NOTE | ~2022-04-23 | DEXA_ITS ---
Bone Density Report Name: NARAYAN SHAFER Age: 56 Sex: Female Ethnicity: White Date of : 1965 Indication: postmenopausal; screening for osteoporosis; height loss; Referring Provider: EUN LINTON Study: Bone densitometry was performed. Exam Date: April 23, 2022 Accession number: [id number] Bone Density: Region BMD T-score Z-score Classification Femoral Neck (Left) 0.963 1.0 2.0 Normal Total Hip (Left) 1.221 2.3 2.9 Normal Femoral Neck (Right) 1.015 1.5 2.5 Normal Total Hip (Right) 1.131 1.6 2.2 Normal Total Hip Mean 1.176 2.0 2.6 Normal World Health Organization criteria for BMD impression classify patients as: Normal (T-score at or above -1.0), Osteopenia (T-score between -1.0 and -2.5), or Osteoporosis (T-score at or below -2.5). 10-year Fracture Risk: FRAX not reported because: All T-scores for Spine Total, Hip Total, Femoral Neck at or above -1.0 Clinical Information Provided by Patient: Patient maximum height was 65 Menopause Age: 50 Drinks caffeinated beverages Onset of menses at age 13 Number of children 3 Impression: The patient has normal bone mass. Discussion: BONE DENSITY IS ABOVE THE MINIMUM DESIRABLE LEVEL AT ALL SKELETAL SITES TESTED. This patient?s bone mineral density is above the minimum desirable level (T-score -1.0 or better) at all sites measured. The patient should follow a healthful lifestyle (good nutrition with adequate calcium and vitamin D, and appropriate weight-bearing exercise). Follow-Up: Consider repeating this study in 5 years or sooner if there is some new clinical indication. Reported by: YULI on 04/23/2022 10:55:00 AM. Reviewed, dictated and finalized at location Gabbi PACKER
--- NOTE | ~2022-04-23 | MM_ITS ---
EXAMINATION: MM screening carlos BI w gely HISTORY: Screening mammogram TECHNIQUE: Craniocaudal and mediolateral oblique 3-D tomosynthesis images were obtained and synthetic 2-D images were generated. CAD analysis was submitted and interpreted. COMPARISON: 02/05/2021, 02/08/2016 bilateral screening mammogram examinations BREAST PARENCHYMAL COMPOSITION: There are scattered areas of fibroglandular density. FINDINGS: Stable focal asymmetry of anterior outer mid left breast since 02/08/2016. There is no evid ence of suspicious mass, calcification, or architectural distortion to suggest malignancy in either b reast. There has been no suspicious interval change. IMPRESSION: 1. No mammographic evidence of malignancy. 2. Recommend routine screening mammography in one year. BI-RADS Category 1: Negative Reviewed, dictated and finalized at location A. FITS CONSULTANT
== END ==
PROVIDERS: PCP Family Medicine; Visit Provider Obstetrics & Gynecology
DX: Z12.31 Encounter for screening mammogram for malignant neoplasm of breast (principal); Z78.0 Asymptomatic menopausal state
CPT/HCPCS: 77063; 77067; 77080